=== PATIENT | female | born 1985 | race Caucasian/White ===

== ENCOUNTER 2016-10-25 11:18 | Emergency (ER) | payer MEDICAID ==
[~2016-10-25] VITALS: Ht 165.1 cm; Wt 70.0 kg
[~2016-10-25 11:18] MED LIST: IBUP-232 PO
[2016-10-25 11:22] VITALS: BP 133/63; PULSE 100; RESP 20; TEMP 99.1; O2SAT 98
--- NOTE | 2016-10-25 11:56 | PD ---
Physical Exam Date Seen by Provider: Oct 25, 2016 Time Seen by Provider: 11:53 Narrative Pt states she has strep throat. She is reporting a fever with a max temp of 102 , white patches in her throat, difficulty swallowing. she denies drooling but states she has been spitting because it's painful to swallow. Pt reports her temperature has been normal. She has no other complaints at this time. She was told by her employer she needs a doctors note to return to work. VSS, awaiting bed placement. Data Data Last Documented VS Vital Signs Date Time Temp Pulse Resp B/P Pulse Ox O2 Delivery O2 Flow Rate FiO2 10/25/16 11:22 99.1 100 20 133/63 98 Room Air MDM Supervised Visit with ESTEVAN: Carmen Olivares Oct 25, 2016 11:55
--- NOTE | 2016-10-25 13:54 | PD ---
HPI Chief Complaint: ENT Complaint Time Seen by Provider: 13:52 Travel History International Travel<30 days: No Contact w/Intl Traveler<30days: No Traveled to known affect area: No History of Present Illness HPI Patient is a 31-year-old female presenting to emergency for evaluation of a sore throat. Patient states that ongoing for several days, it hurts to swallow and she has been spitting out saliva due to pain when swallowing. She denies any dysphasia. She denies any shortness breath, nausea, vomiting, abdominal pain, chest pain. Patient reports a dull headache due to the pain. She has no other complaints at this time. She has been taking her son's amoxicillin that she had left over after his prescription was changed to a different antibiotic. She's been taking approximately about the milligrams twice a day for the last 2 days. [facility] Past Medical History Medical History: Denies Significant Hx Diminished Hearing: No ?: Not : 1 Para: 1 Social History Alcohol Use: Yes (OCCASIONALLY) Tobacco Use: No Substance Use: No Allergies-Medications (Allergen,Severity, Reaction): Coded Allergies: No Known Allergies (Verified , 06/18/16) Reported Meds & Prescriptions Reported Meds & Active Scripts Active Ibuprofen 600 Mg Tab 600 Mg PO Q6H PRN Review of Systems Except as stated in HPI: all other systems reviewed are Neg General / Constitutional: Positive: Other (fatigue) HENT: Positive: Headaches, Sore Throat Cardiovascular: No: Chest Pain or Discomfort Respiratory: No: Shortness of Breath Gastrointestinal: No: Nausea, Vomiting, Abdominal Pain Neurologic: No: Weakness, Dizziness, Syncope Physical Exam Narrative GENERAL: Well-nourished, well-developed patient. SKIN: Focused skin assessment warm/dry. HEAD: Normocephalic. EYES: No scleral icterus. No injection or drainage. ENT: Mucosa pink and moist. Moderate erythema, exudates noted on tonsils bilaterally. No uvular edema. No uvular, palatal, or tonsillar deviation. Airway patent. Nasal turbinates appear normal without nasal blood, purulent drainage or septal hematoma. NECK: Supple, trachea midline. No JVD or lymphadenopathy. CARDIOVASCULAR: Regular rate and rhythm without murmurs, gallops, or rubs. RESPIRATORY: Breath sounds equal bilaterally. No accessory muscle use. GASTROINTESTINAL: Abdomen soft, non-tender, nondistended. MUSCULOSKELETAL: No cyanosis, or edema. BACK: Nontender without obvious deformity. No CVA tenderness. Data Data Last Documented VS Vital Signs Date Time Temp Pulse Resp B/P Pulse Ox O2 Delivery O2 Flow Rate FiO2 10/25/16 11:22 99.1 100 20 133/63 98 Room Air Orders Group A Rapid Strep Screen (10/25/16 13:02) Dexamethasone Inj (Decadron Inj) (10/25/16 14:00) Ibuprofen (Motrin) (10/25/16 14:00) Strep Culture (Group A) (10/25/16 13:26) MDM Medical Decision Making Medical Screen Exam Complete: Yes Emergency Medical Condition: Yes Interpretation(s) Vital Signs Date Time Temp Pulse Resp B/P Pulse Ox O2 Delivery O2 Flow Rate FiO2 10/25/16 11:22 99.1 100 20 133/63 98 Room Air Differential Diagnosis Strep pharyngitis versus viral URI versus acute sinusitis versus other Narrative Course Patient is a 31-year-old female presenting to emergency for evaluation of a sore throat. Patient's vital signs are stable, she is well oxygenated, airway is patent. Physical exam revealed bilateral tonsillar hypertrophy with exudates. Strep culture obtained, culture was negative for group A strep. She given ibuprofen and dexamethasone in the emergency department for pain and to help alleviate swelling. Patient will be treated empirically she has only been taking amoxicillin for 2 days, she will be provided with her own prescription. Patient is encouraged to follow-up with her primary care provider return to emergency department for any new or worsening symptoms. Patient verbalized understanding of these instructions. Patient is stable for discharge. Diagnosis Primary Impression: Exudative pharyngitis Referrals: Primary Care Physician 3 days Patient Instructions: General Instructions, Pharyngitis (ED) Departure Forms: Tests/Procedures, Work Release Enter return to work date: Oct 26, 2016 Additional Instructions: Follow-up with your primary doctor Take medications as directed Return to emergency department for any new or worsening symptoms Rest, maintain adequate fluid intake, complete full course of antibiotics as prescribed Take ibuprofen for pain and fevers as directed and as needed Med/Other Pt SpecificInfo: Prescription(s) given Scripts Ibuprofen 800 Mg [id number] Mg PO Q6HR PRN (PAIN) #40 TAB Ref 0 Prov:Carmen Thornton 10/25/16 Amoxicillin-Clavulanate (Augmentin)875-125 mg [id number] Mg PO BID #20 TAB Ref 0 not for use in CrCl <30 ml/min. Prov:Carmen Thornton 10/25/16 Disposition: 01 DISCHARGE HOME Condition: Stable Carmen Thornton Oct 25, 2016 13:54
[2016-10-25] MEDS ORDERED: DEXAMETHASONE SOD PHOS 20 MG/5 ML VIAL IM ONE (14:00)
[2016-10-25] MEDS ORDERED: IBUPROFEN 800 MG TAB PO ONE (14:00)
[2016-10-25] MEDS ORDERED: IBUP800T23 PO (14:38)
[2016-10-25] MEDS ORDERED: AUGM875T PO (14:38)
== END 2016-10-25 15:01 | disposition home or self-care (01) ==
LOC: NETRI 11:18
DX: J02.0 Streptococcal pharyngitis (principal); B95.0 Streptococcus, group A, as the cause of diseases classified elsewhere
CPT/HCPCS: 87081; 87880; 96372; 99284; J1100

== ENCOUNTER 2017-10-18 19:26 | Emergency (ER) | payer MEDICAID ==
[~2017-10-18 19:26] MED LIST changes: +FERRTAB2 PO; -IBUP-232 PO; +PREN1PAK2 PO
[2017-10-18 20:05] VITALS: PULSE 84
[2017-10-18 20:08] VITALS: BP 126/76; PULSE 90
[2017-10-18 20:10] VITALS: PULSE 88
--- NOTE | 2017-10-18 20:33 | PD ---
HPI Chief Complaint ?LOF Date Seen: Oct 18, 2017 Time Seen: 20:29 Travel History International Travel<30 Days: No Contact w/Intl Traveler<30Days: No Known Affected Area: No History of Present Illness HPI Pt is a 32y/o @ 38.0wks. She has PNC with [facility]. She states that for the past week she has been leaking clear fluid. She saw her OBGYN yesterday and was checked and they told her she was not dilated. She was advised if the leaking fluid continued that she should be seen in triage. She came in [facility] for evaluation. She denies VB. +FM. Reports some BH ctx. Weeks Gestation: 38 Para: 1 : 2 History Past Medical History Medical History: Denies Significant Hx Obstetric History Obstetric History 1. 2. current Past Surgical History Surgical History: No Previous Surgery Family History Family History: Negative Social History Alcohol Use: No Tobacco Use: No Substance Abuse: No Allergies-Medications (Allergen,Severity, Reaction): Coded Allergies: No Known Allergies (Verified Adverse Reaction, Unknown, 07/24/17) Home Meds Active Scripts Multi-Vit/Iron-Folic Iosu-B07-Snl C (Ferralet) 90-1-0.012-120 mg Tab, 1 CAPLET PO DAILY for 30 Days, #30 CAPLET 3 Refills Prov:Minerva Shook CNMP 05/22/17 W/O Vit A W/ Fe Carbo Pack (Citranatal Dha Pack) 27-1 & 250 Mg Pack, 1 EA PO DAILY for Nutritional Supplement, #60 BLISTER 11 Refills 30 day supply. Prov:Elaine Price 04/30/17 Review of Systems Except as stated in HPI: all other systems reviewed are Neg Physical Exam Vital Signs Date Time Temp Pulse Resp B/P (MAP) Pulse Ox O2 Delivery O2 Flow Rate FiO2 10/18/17 20:10 88 10/18/17 20:08 90 126/76 (93) 10/18/17 20:05 84 Narrative General: well developed, well nourished, no acute distress HEENT: normocephalic atraumatic, extraocular movements intact, neck supple Abdomen: soft, gravid, nontender, nondistended Uterus: fundus term Extremities: full range of motion Skin: normal coloration, no rashes, no suspicious skin lesions noted Neurologic: cranial nerves 2-12 grossly intact, normal muscle tone, normal gait Psychiatric: normal mood and affect, appropriate FHTs: 140s, +accels, no decels, moderate variability, reactive Lane: irritable Cvx: deferred, amnisure negative Data Data Vital Signs Reviewed: Yes Orders Orders Vital Signs (Adult) .ON ADMISSION (10/18/17 20:07) ^ Labor Status (10/18/17 20:07) Urinalysis - C+S If Indicated (10/18/17 20:07) ^ Non Stress Test (10/18/17 20:07) Pamg-1 Test .ONCE (10/18/17 20:07) Ed Discharge Order (10/18/17 20:29) MDM Plan 32y/o @ 38.0wks with ?LOF. -- amnisure negative -- FHTs cat 1 -- pt counseled not to delay presentation to triage if suspected ROM Dispo: stable for d/c home with precautions Diagnosis Diagnosis: Primary Impression: 38 weeks gestation of Additional Impression: No leakage of amniotic fluid into vagina Ro Antoine MD Oct 18, 2017 20:33
== END 2017-10-18 20:43 | disposition home or self-care (01) ==
LOC: HOBED 19:26
DX: O26.93 Pregnancy related conditions, unspecified, third trimester (principal); Z3A.38 38 weeks gestation of pregnancy
CPT/HCPCS: 59025

== ENCOUNTER 2017-11-03 19:45 | Inpatient (IN) | payer MEDICAID ==
[~2017-11-03] VITALS: Ht 165.1 cm; Wt 90.0 kg
[2017-11-03] MEDS: LACTATED RINGER'S 1000 ML INJ 1,000 ML IV SCH (20:56)
[2017-11-03] MEDS ORDERED: LACTATED RINGER'S 1000 ML INJ 1,000 ML IV PRN (20:56)
[2017-11-03] MEDS ORDERED: SODIUM CHLORID 0.9% 500 ML INJ 500 ML IV PRN (21:00)
[2017-11-03] MEDS ORDERED: MINERAL OIL 10 ML VIAL TOPICAL PRN (21:00)
[2017-11-03] MEDS ORDERED: LIDOCAINE HCL 1% 50 ML VIAL INFIL PRN (21:00)
[2017-11-03] MEDS ORDERED: OXYTOCIN 30 UNITS-500ML PREMIX 500 ML IV ONE (21:00)
[2017-11-03] MEDS ORDERED: LIDOCAINE HCL 1% 50 ML VIAL I-DERMAL PRN (21:00)
[2017-11-03] MEDS ORDERED: CITRIC ACID-SODIUM CITRATE LIQ 30 ML UDC PO SCH (21:00)
--- NOTE | 2017-11-03 21:02 | HHI.HP ---
HPI Chief Complaint Postdates induction for suspected macrosomia Date Seen: Nov 03, 2017 Time Seen: 20:55 Travel History International Travel<30 Days: No Contact w/Intl Traveler<30Days: No Known Affected Area: No History of Present Illness HPI 32-year-old white female @ 40 weeks and 2 days patient of the [facility] who was sent over and schedule by the clinic for induction because she is overdue and she has a history of large babies first baby was 8 lbs. 10 oz. and they are afraid this baby is also 9 pounds so they have called and scheduled for induction. heart tones are reactive and she is having occasional contractions Weeks Gestation: 40 Para: 1 : 2 History Obstetric History Obstetric History 1 vaginal delivery baby 8 lbs. 10 oz. Social History Alcohol Use: No Tobacco Use: No Substance Abuse: No Allergies-Medications (Allergen,Severity, Reaction): Coded Allergies: No Known Allergies (Verified Adverse Reaction, Unknown, 11/03/17) Home Meds Active Scripts Multi-Vit/Iron-Folic Newi-R96-Sbu C (Ferralet) 90-1-0.012-120 mg Tab, 1 CAPLET PO DAILY for 30 Days, #30 CAPLET 3 Refills Prov:Minerva Shook CNMP 05/22/17 W/O Vit A W/ Fe Carbo Pack (Citranatal Dha Pack) 27-1 & 250 Mg Pack, 1 EA PO DAILY for Nutritional Supplement, #60 BLISTER 11 Refills 30 day supply. Prov:Elaine PriceP 04/30/17 Review of Systems General / Constitutional: No: Fever, Weight Gain, Chills, Other Eyes: No: Diploplia, Blurred Vision, Visual changes, Pain, Photophobia HENT: No: Headaches, Vertigo, Lightheadedness Cardiovascular: No: Irregular Rhythm, Chest Pain or Discomfort, Palpitations, Tachycardia, Syncope, Varicosities, Edema, Cyanosis Respiratory: No: Cough, Short of Breath, Other Gastrointestinal: No: Nausea, Vomiting, Diarrhea Genitourinary: No: Decreased Urinary Output, Oliguria Musculoskeletal: No: Limited ROM, Weakness, Cramping, Edema, Pain Skin: No Rash, No Itching, No Dryness, No Lumps, No Change in Pigmentation, No Change in Nails, No Alopecia, No Lesions Neurologic: No: Weakness, Dizziness, Syncope, Focal Abnormalities, Coordination Problem, Headache, Slurred Speech, Seizures Psychiatric: No: Depression, Suicidal Ideations, Homicidal Ideation Endocrine: No: Heat Intolerance, Cold Intolerance, Polydipsia, Polyuria, Other Physical Exam Narrative GENERAL: Well-nourished, well-developed patient. SKIN: Warm and dry. HEAD: Normocephalic and atraumatic. EYES: No scleral icterus. No injection or drainage. ENT: No nasal drainage noted. Mucous membranes pink. Airway patent. NECK: Supple, trachea midline. No JVD. CARDIOVASCULAR: Regular rate and rhythm without murmurs, gallops, or rubs. RESPIRATORY: Breath sounds equal bilaterally. No accessory muscle use. BREASTS: Bilateral exam showed no masses , no retractions, no nipple discharge. ABDOMEN/GI: Abdomen soft, non-tender, bowel sounds present, no rebound, no guarding Gravid to [40-] weeks size Fundal Height: [-40] GENITOURINARY: External Genitalia: intact and normal in appearance BUS glands: [-] Cervix: [-post] Dilatation: [-1] Effacement: [50-] Station: [-3] Presentation: [vtx-] Membranes: [intact ] Uterine Contractions: [irreg-] FHT's: Category: [-1] Baseline: [-133] Reactive: [R-] Variability: [mod-] Decels: [none-] EXTREMITIES: No cyanosis or edema. BACK: Nontender without obvious deformity. No CVA tenderness. NEUROLOGICAL: Awake and alert. Motor and sensory grossly within normal limits. Five out of 5 muscle strength in all muscle groups. Normal speech. Caprini VTE Risk Assessment Caprini VTE Risk Assessment: No/Low Risk (score <= 1) Caprini Risk Assessment Model Point Value = 1 Point Value = 2 Point Value = 3 Point Value = 5 Age 41-60 Minor surgery BMI > 25 kg/m2 Swollen legs Varicose veins or History of unexplained or recurrent spontaneous Oral contraceptives or hormone replacement Sepsis (< 1 month) Serious lung disease, including pneumonia (< 1 month) Abnormal pulmonary function Acute myocardial infarction Congestive heart failure (< 1 month) History of inflammatory bowel disease Medical patient at bed rest Age 61-74 Arthroscopic surgery Major open surgery (> 45 min) Laparoscopic surgery (> 45 min) Malignancy Confined to bed (> 72 hours) Immobilizing plaster cast Central venous access Age >= 75 History of VTE Family history of VTE Factor V Leiden Prothrombin [id number] Lupus anticoagulant Anticardiolipin antibodies Elevated serum homocysteine Heparin-induced thrombocytopenia Other congenital or acquired thrombophilia Stroke (< 1 month) Elective arthroplasty Hip, pelvis, or leg fracture Acute spinal cord injury (< 1 month) Prophylaxis Regimen Total Risk Factor Score Risk Level Prophylaxis Regimen 0-1 Low Early ambulation 2 Moderate Order ONE of the following: *Sequential Compression Device (SCD) *Heparin 5000 units SQ BID 3-4 Higher Order ONE of the following medications: *Heparin 5000 units SQ TID *Enoxaparin/Lovenox 40 mg SQ daily (WT < 150 kg, CrCl > 30 mL/min) *Enoxaparin/Lovenox 30 mg SQ daily (WT < 150 kg, CrCl > 10-29 mL/min) *Enoxaparin/Lovenox 30 mg SQ BID (WT < 150 kg, CrCl > 30 mL/min) AND/OR *Sequential Compression Device (SCD) 5 or more Highest Order ONE of the following medications: *Heparin 5000 units SQ TID (Preferred with Epidurals) *Enoxaparin/Lovenox 40 mg SQ daily (WT < 150 kg, CrCl > 30 mL/min) *Enoxaparin/Lovenox 30 mg SQ daily (WT < 150 kg, CrCl > 10-29 mL/min) *Enoxaparin/Lovenox 30 mg SQ BID (WT < 150 kg, CrCl > 30 mL/min) AND *Sequential Compression Device (SCD) Data Data Orders Orders Admit To Inpatient (11/03/17 ) Vital Signs (Adult) .Per protocol (11/03/17 20:56) Heart (11/03/17 20:56) Amnioinfusion (11/03/17 20:56) Urinary Catheter Management .ONCE (11/03/17 20:56) Diet Liquid (11/04/17 Breakfast) Lactated Ringer's 1000 Ml Inj (Lr 1000 M (11/03/17 20:56) Lactated Ringer's 1000 Ml Inj (Lr 1000 M (11/03/17 20:56) Sodium Chlorid 0.9% 500 Ml Inj (Ns 500 M (11/03/17 21:00) Sodium Chlor 0.9% 1000 Ml Inj (Ns 1000 M (11/03/17 21:16) Lidocaine 1% Inj (50 Ml) (Xylocaine 1% I (11/03/17 21:00) Citric Acid-Sodium Citrate Liq (Bicitra (11/03/17 21:00) Fentanyl Inj (Fentanyl Inj) (11/03/17 21:00) Fentanyl Inj (Fentanyl Inj) (11/03/17 21:00) Complete Blood Count With Diff (11/03/17 20:56) Hold Clot (11/03/17 20:56) Abo/Rh Blood Type (11/03/17 20:56) Urinalysis - C+S If Indicated (11/03/17 20:56) Drug Screen, Random Urine (11/03/17 20:56) Ob/Psych Drug Screen, Urine (11/03/17 20:56) Resp Oxygen Non Rebreathe Mask (11/03/17 ) ^ Epidural / Intrathecal Infus (11/03/17 20:56) Oxytocin 30 Units-500ml Premix (Pitocin (11/03/17 21:00) Lidocaine 1% Inj (50 Ml) (Xylocaine 1% I (11/03/17 21:00) Light Mineral Oil (Muri-Lube Oil) (11/03/17 21:00) Specimen To Be Collected PRN (11/03/17 20:56) Specimen To Be Collected PRN (11/03/17 20:56) ^ Labor Induction (11/03/17 20:57) ^ Vaginal Insert (11/03/17 20:57) ^ Vaginal Lavage (11/03/17 20:57) Heart (11/03/17 20:57) Dinoprostone Vag Insert (Cervidil Vag In (11/03/17 21:00) Group B Strep: Negative Assessment/Plan Assessment and Plan Patient is 32-year-old white female at 40 weeks and 2 days referred for induction for postdates and possible macrosomia, she is having irregular contractions now heart rate tracing is reactive and her cervix is 1/50/-3 Plan-Cervidil cervical ripening the night and Pitocin augmentation in the morning Mich Woo II, MD Nov 03, 2017 21:02
[2017-11-03 21:04] VITALS: RESP 18
[2017-11-03] MEDS ORDERED: DINOPROSTONE 10 MG VAG INSERT VAGINAL ONE (21:15)
[2017-11-03] MEDS ORDERED: SODIUM CHLOR 0.9% 1000 ML INJ 1,000 ML IV PRN (21:16)
[2017-11-03 21:30] VITALS: RESP 18
[2017-11-03 21:55] LABS: AUTOMATED NEUTROPHIL # 8.6 TH/MM3 (1.8-7.7); BASOPHIL # 0.1 TH/MM3 (0-0.2); BASOPHIL % 0.7 % (0.0-2.0); EOSINOPHIL # 0.1 TH/MM3 (0-0.4); EOSINOPHIL % 0.9 % (0.0-4.0); HEMATOCRIT 32.1 % (35.0-46.0); HEMOGLOBIN 10.7 GM/DL (11.6-15.3); LYMPH % 16.9 % (9.0-44.0); LYMPHOCYTE # 1.9 TH/MM3 (1.0-4.8); MEAN CORPUSCULAR HGB CONC 33.3 % (32.0-36.0); MEAN PLATELET VOLUME 9.3 FL (7.0-11.0); MONO % 6.4 % (0.0-8.0); MONOCYTE # 0.7 TH/MM3 (0-0.9); NEUT % 75.1 % (16.0-70.0); PLATELET COUNT 261 TH/MM3 (150-450); RED BLOOD COUNT 3.56 MIL/MM3 (4.00-5.30); RED CELL DISTRIBUTION WIDTH 14.1 % (11.6-17.2); WHITE BLOOD COUNT 11.5 TH/MM3 (4.0-11.0)
[2017-11-03 21:59] LABS: BILIRUBIN, URINE NEG (NEG); BLOOD, URINE NEG (NEG); GLUCOSE,URINE NEG (NEG); KETONE, URINE NEG (NEG); MUCUS URINE FEW /lpf (OCC); NITRITE,URINE NEG (NEG); PH, URINE 6.5 (5.0-8.5); SQUAMOUS EPITHELIAL CELL URINE 1 /hpf (0-5); URINE COLOR LIGHT-YELLOW (YELLW/STRAW); URINE LEUKOCYTE ESTERASE NEG (NEG)
[2017-11-03 22:30] VITALS: RESP 18
[2017-11-03 22:49] VITALS: BP 132/69; PULSE 87
[2017-11-03 22:51] VITALS: RESP 16; TEMP 97.8
[2017-11-04] VITALS (86 sets, daily range): BP systolic 90–137; BP diastolic 47–90; PULSE 68–125; RESP 16–18; TEMP 97.8–98.6
[2017-11-04] MEDS ORDERED: TERBUTALINE INJ 1 MG/ML AMP ONE (08:40)
[2017-11-04] MEDS ORDERED: TERBUTALINE INJ 1 MG/ML AMP SQ ONE (08:45)
--- NOTE | 2017-11-04 08:51 | PD.LABORPN ---
Subjective Subjective Patient feeling some cramping Dr. Woo performed vaginal exam, removed Cervidil, performed AROM of clear fluids, cervix noted to be 3/40/-2 Noted bradycardia after placement Objective Vital Signs Vital Signs Date Time Temp Pulse Resp B/P (MAP) Pulse Ox O2 Delivery O2 Flow Rate FiO2 11/04/17 08:00 17 11/04/17 07:00 18 11/04/17 06:30 16 11/04/17 05:35 97.8 16 11/04/17 05:33 77 121/67 (85) 11/04/17 04:59 18 11/04/17 03:49 18 11/04/17 02:30 16 11/04/17 02:00 16 11/04/17 00:50 16 Objective Pelvic Exam: Cervix: 3/40/-2 Presentation: vertex Membranes: AROM, clear ROM Uterine Contractions: absent after terbutaline FHT's: as noted Weeks Gestation: 40 Artificial ROM date: Nov 04, 2017 Artifical ROM time: 08:35 Assessment/Plan Assessment and Plan Dr. Woo performed exam, AROM, placed IUPC and scalp electrode Prolonged deceleration following placement: bradycardia to mary jo of 50 over 2-3 minutes, with recovery to 90s then HR 120s after 8 minutes Resuscitation efforts as follows: O2, repositioning, Terbulatine 0.25mg x 1, IV fluid bolus Will continue close monitoring for distress Rekha Arthur MD R2 Nov 04, 2017 08:51
[2017-11-04] MEDS: LACTATED RINGER'S 1000 ML INJ 1,000 ML IV SCH ×2 (09:00→12:00)
[2017-11-04] MEDS ORDERED: OXYTOCIN 30 UNITS-500ML PREMIX 500 ML IV PRN (10:30)
[2017-11-04] MEDS ORDERED: ePHEDrine/NS 25 MG/5 ML SYRINGE ONE (12:56)
[2017-11-04] MEDS ORDERED: fentaNYL 2MCG-BUPIV 0.125% INJ 100 ML ONE (12:56)
[2017-11-04] MEDS ORDERED: LABETALOL HCL 100 MG/20 ML VIAL IV PUSH PRN (13:45)
[2017-11-04] MEDS ORDERED: ePHEDrine/NS 25 MG/5 ML SYRINGE IV PUSH PRN (14:30)
[2017-11-04] MEDS ORDERED: DO NOT ADMINISTER ANTICOAGULANTS PRN (14:30)
[2017-11-04] MEDS ORDERED: NO SYSTEM NARCOTICS PRN (14:30)
[2017-11-04] MEDS ORDERED: DIPHTH/TETANUS/ACEL PERTUSSIS (BOOSTER) 0.5 ML VIAL/PFS IM ONE (16:00)
[2017-11-04] MEDS ORDERED: MEASLES, MUMPS, RUBELLA VACCINE 0.5 ML VIAL SQ ONE (16:00)
--- NOTE | 2017-11-04 16:31 | PD.LABORPN ---
Subjective Subjective 32YO at 40/3 now at 6/50/-1, AROM at 08:35AM followed by IUPC placement and scalp probe and removal of Cervidil. Instance of beau cardia has not repeated. FHT BL 130, reactive, moderate and several variable decels. Objective Vital Signs Vital Signs Date Time Temp Pulse Resp B/P (MAP) Pulse Ox O2 Delivery O2 Flow Rate FiO2 11/04/17 16:16 127/79 (95) 11/04/17 16:16 85 11/04/17 16:15 79 11/04/17 16:13 18 11/04/17 16:10 84 11/04/17 16:05 74 11/04/17 16:00 88 117/61 (79) 11/04/17 16:00 72 11/04/17 15:57 17 11/04/17 15:55 74 11/04/17 15:50 74 11/04/17 15:45 76 11/04/17 15:45 18 11/04/17 15:45 68 104/62 (76) 11/04/17 15:25 80 11/04/17 15:20 91 11/04/17 15:15 80 11/04/17 15:15 79 113/70 (84) 11/04/17 15:15 17 11/04/17 15:10 81 11/04/17 15:05 82 11/04/17 15:00 83 11/04/17 15:00 92 119/62 (81) 11/04/17 14:58 18 11/04/17 14:55 89 11/04/17 14:50 105 11/04/17 14:45 87 11/04/17 14:45 94 119/65 (83) 11/04/17 14:43 17 11/04/17 14:40 84 11/04/17 14:35 102 11/04/17 14:30 125 11/04/17 14:30 98 98/67 (77) 11/04/17 14:25 111 11/04/17 14:20 82 11/04/17 14:15 98.3 11/04/17 14:15 86 11/04/17 14:15 90 109/66 (80) 11/04/17 14:15 18 11/04/17 14:10 99 112/71 (85) 11/04/17 14:10 81 11/04/17 14:07 102 107/58 (74) 11/04/17 14:05 90/52 (65) 11/04/17 14:05 104 11/04/17 14:05 102 11/04/17 14:00 17 11/04/17 14:00 89 101/66 (78) 11/04/17 14:00 87 11/04/17 13:55 102 11/04/17 13:55 81 108/64 (79) 11/04/17 13:50 107 110/68 (82) 11/04/17 13:50 83 11/04/17 13:45 113 11/04/17 13:45 89 108/58 (75) 11/04/17 13:45 18 11/04/17 13:40 89 11/04/17 13:40 101 124/75 (91) 11/04/17 13:38 105 102/51 (68) 11/04/17 13:35 101 93/47 (62) 11/04/17 13:35 86 11/04/17 13:30 98 11/04/17 13:30 107 116/71 (86) 11/04/17 13:25 89 11/04/17 13:25 91 130/73 (92) 11/04/17 13:21 103 111/82 (92) 11/04/17 13:00 94 126/73 (90) 11/04/17 13:00 18 11/04/17 12:15 18 11/04/17 12:00 81 101/89 (93) 11/04/17 11:30 18 11/04/17 11:30 94 133/71 (91) 11/04/17 11:00 18 11/04/17 10:59 99 125/76 (92) 11/04/17 10:30 18 11/04/17 09:29 17 11/04/17 08:59 98.6 18 11/04/17 08:50 88 134/73 (93) Objective Pelvic Exam: Cervix: open Dilatation: 6 Effacement: 50 Station: -1 Presentation: vtx Membranes: AROM 08:35AM with IUPC placement and scalp probe Uterine Contractions: regular, q2-3minutes FHT's: Category: 2 Baseline: 130 Reactive: yes Variability: moderate Decels: several variable decels noted Weeks Gestation: 40 Pt started active labor?: Yes Medical induction of labor?: Yes Medical induction start date: Nov 03, 2017 Artificial rupture of membrane: Yes Artificial ROM date: Nov 04, 2017 Artifical ROM time: 08:35 Assessment/Plan Assessment and Plan 32YO at 40/3 now at 6/50/-1, AROM at 08:35AM followed by IUPC placement and scalp probe and removal of Cervidil. Instance of beau cardia has not repeated. FHT BL 130, reactive, moderate and several variable decels. 1. IUP with induction of labor -Reassuring FHTs -Active labor with Pitocin titrated per protocol -Epidural in place -Repositioning, supplemental O2 as required -Monitor and toco w/IUPC and scalp probe in place -Recheck cervix q2h Pt dw Chino Poole MD R1 Nov 04, 2017 16:31
[2017-11-04] MEDS: fentaNYL 2MCG-BUPIV 0.125% 100 ML EPIDURAL SCH ×2 (19:17→20:13)
--- NOTE | 2017-11-04 20:29 | PD.LABORPN ---
Subjective Subjective Patient lying in bed, resting peacefully, no acute complaints. Objective Vital Signs Vital Signs Date Time Temp Pulse Resp B/P (MAP) Pulse Ox O2 Delivery O2 Flow Rate FiO2 11/04/17 20:00 103 117/76 (90) 11/04/17 19:31 94 108/60 (76) 11/04/17 19:08 98.3 16 11/04/17 19:00 90 133/86 (102) 11/04/17 18:45 18 11/04/17 18:45 89 129/77 (94) 11/04/17 18:30 85 112/74 (87) 11/04/17 18:25 18 11/04/17 18:15 82 118/76 (90) 11/04/17 18:00 18 11/04/17 17:45 78 97/72 (80) 11/04/17 17:30 17 11/04/17 17:15 90 112/71 (85) 11/04/17 17:00 87 125/75 (92) 11/04/17 17:00 17 11/04/17 16:45 80 117/80 (92) 11/04/17 16:41 18 11/04/17 16:31 82 118/71 (87) 11/04/17 16:16 127/79 (95) 11/04/17 16:16 85 11/04/17 16:15 98.2 11/04/17 16:15 79 11/04/17 16:13 18 11/04/17 16:10 84 11/04/17 16:05 74 11/04/17 16:00 88 117/61 (79) 11/04/17 16:00 72 11/04/17 15:57 17 11/04/17 15:55 74 11/04/17 15:50 74 11/04/17 15:45 76 11/04/17 15:45 18 11/04/17 15:45 68 104/62 (76) 11/04/17 15:25 80 11/04/17 15:20 91 11/04/17 15:15 80 11/04/17 15:15 79 113/70 (84) 11/04/17 15:15 17 11/04/17 15:10 81 11/04/17 15:05 82 11/04/17 15:00 83 11/04/17 15:00 92 119/62 (81) 11/04/17 14:58 18 11/04/17 14:55 89 11/04/17 14:50 105 11/04/17 14:45 87 11/04/17 14:45 94 119/65 (83) 11/04/17 14:43 17 11/04/17 14:40 84 11/04/17 14:35 102 11/04/17 14:30 125 11/04/17 14:30 98 98/67 (77) 11/04/17 14:25 111 11/04/17 14:20 82 11/04/17 14:15 98.3 11/04/17 14:15 86 11/04/17 14:15 90 109/66 (80) 11/04/17 14:15 18 11/04/17 14:10 99 112/71 (85) 11/04/17 14:10 81 11/04/17 14:07 102 107/58 (74) 11/04/17 14:05 90/52 (65) 11/04/17 14:05 104 11/04/17 14:05 102 11/04/17 14:00 17 11/04/17 14:00 89 101/66 (78) 11/04/17 14:00 87 11/04/17 13:55 102 11/04/17 13:55 81 108/64 (79) 11/04/17 13:50 107 110/68 (82) 11/04/17 13:50 83 11/04/17 13:45 113 11/04/17 13:45 89 108/58 (75) 11/04/17 13:45 18 11/04/17 13:40 89 11/04/17 13:40 101 124/75 (91) 11/04/17 13:38 105 102/51 (68) 11/04/17 13:35 101 93/47 (62) 11/04/17 13:35 86 11/04/17 13:30 98 11/04/17 13:30 107 116/71 (86) 11/04/17 13:25 89 11/04/17 13:25 91 130/73 (92) 11/04/17 13:21 103 111/82 (92) 11/04/17 13:00 94 126/73 (90) 11/04/17 13:00 18 Objective Pelvic Exam: Dilatation: 7 Effacement: 70 Station: -2 Presentation: vertex Membranes: AROM Uterine Contractions: regular 2-3 min FHT's: Category: 2 Baseline: 135 Reactive: yes Variability: moderate Decels: variable Weeks Gestation: 40 Pt started active labor?: Yes Medical induction of labor?: Yes Medical induction start date: Nov 03, 2017 Artificial rupture of membrane: Yes Artificial ROM date: Nov 04, 2017 Artifical ROM time: 08:35 Assessment/Plan Assessment and Plan 1. IUP with induction of labor -Reassuring FHTs -Active labor with Pitocin titrated per protocol -Epidural in place -Repositioning, supplemental O2 as required -Monitor and toco w/IUPC and scalp probe in place -Recheck cervix q2h Efrain Pablo MD R1 Nov 04, 2017 20:29
[2017-11-04] MEDS ORDERED: LIDOCAINE HCL 1% PF 30 ML VIAL ONE (20:47)
--- NOTE | 2017-11-04 21:48 | PD.OB.DELI ---
Weeks gestation: 40 Pt started active labor?: Yes Medical induction of labor?: Yes Medical induction start date: Nov 03, 2017 Artificial rupture of membrane: Yes Artificial ROM date: Nov 04, 2017 Artifical ROM time: 08:35 Anesthesia: Epidural Episiotomy: None Vaginal Delivery: Normal Presentation: Occiput anterior Nuchal Cord: x2 Delayed cord clamping (45 sec): Yes Infant: Female Delivery date: Nov 04, 2017 Delivery time: 21:12 One Minute : 9 Five Minute : 9 Weight: 3585g Placenta: Spontaneous delivery, Intact, 3 vessel cord Laceration: Vaginal laceration, 1 deg (periurethral, left vaginal wall), 2 deg (midline) Repair: Chromic interrupted, Chromic running Estimated blood loss: 100 Additional Information Delivered under the supervision of Efrain Babcock MD R1 Nov 04, 2017 21:48
[2017-11-04] MEDS ORDERED: DOCUSATE SODIUM 50 MG/SENNA 8.6 MG TAB PO PRN (22:00)
[2017-11-04] MEDS ORDERED: OXYTOCIN 30 UNITS-500ML PREMIX 500 ML IV SCH (22:00)
[2017-11-04] MEDS ORDERED: ONDANSETRON ODT 4 MG TAB PO PRN (22:00)
[2017-11-04] MEDS ORDERED: ACETAMINOPHEN 325 MG TAB PO PRN (22:00)
[2017-11-04] MEDS ORDERED: ALUMINUM/MAGNESIUM/SIMETH 30 ML CUP PO PRN (22:00)
[2017-11-04] MEDS ORDERED: WITCH HAZEL 50%/GLYCERIN 12.5% 40 PAD JAR TOPICAL PRN (22:00)
[2017-11-04] MEDS ORDERED: BENZOCAINE 20% TOPICAL SPRAY 60 ML CAN TOPICAL PRN (22:00)
[2017-11-04] MEDS ORDERED: SODIUM CHLORIDE 0.9% FLUSH 10 ML FLUSH IV FLUSH PRN (22:00)
[2017-11-04] MEDS ORDERED: ZOLPIDEM TARTRATE 5 MG TAB PO PRN (22:00)
[2017-11-05 00:05] VITALS: BP 139/78; PULSE 100; RESP 20; TEMP 98.2; O2SAT 98
[2017-11-05] MEDS: IBUPROFEN 800 MG TAB PO PRN ×3 (05:10→21:13)
--- NOTE | 2017-11-05 09:30 | HHI.OB ---
Subjective Post Day: 1 Remarks Ms Caceres had no acute events overnight. Pain controlled, ambulating a little w/ o dizziness, taking PO, voiding twice and some flatus but no BM yet. Attempting to breastfeed. Lochia is same as a period. Deciding on control options. No concerns this morning. Objective Vitals/I&O Vital Signs Date Time Temp Pulse Resp B/P (MAP) Pulse Ox O2 Delivery O2 Flow Rate FiO2 11/05/17 00:05 98.2 100 20 139/78 (98) 98 11/04/17 23:00 107 128/83 (98) 11/04/17 22:45 98 127/82 (97) 11/04/17 22:30 104 137/89 (105) 11/04/17 22:15 98 131/77 (95) 11/04/17 22:02 18 11/04/17 22:01 98.0 86 117/90 (99) 11/04/17 21:48 111 17 128/85 (99) 11/04/17 20:30 84 127/81 (96) 11/04/17 20:00 103 117/76 (90) 11/04/17 19:31 94 108/60 (76) 11/04/17 19:08 98.3 16 11/04/17 19:00 90 133/86 (102) 11/04/17 18:45 18 11/04/17 18:45 89 129/77 (94) 11/04/17 18:30 85 112/74 (87) 11/04/17 18:25 18 11/04/17 18:15 82 118/76 (90) 11/04/17 18:00 18 11/04/17 17:45 78 97/72 (80) 11/04/17 17:30 17 11/04/17 17:15 90 112/71 (85) 11/04/17 17:00 87 125/75 (92) 11/04/17 17:00 17 11/04/17 16:45 80 117/80 (92) 11/04/17 16:41 18 11/04/17 16:31 82 118/71 (87) 11/04/17 16:16 127/79 (95) 11/04/17 16:16 85 11/04/17 16:15 98.2 11/04/17 16:15 79 4/10/18 16:13 18 11/04/17 16:10 84 11/04/17 16:05 74 11/04/17 16:00 88 117/61 (79) 11/04/17 16:00 72 11/04/17 15:57 17 11/04/17 15:55 74 11/04/17 15:50 74 11/04/17 15:45 76 11/04/17 15:45 18 11/04/17 15:45 68 104/62 (76) 11/04/17 15:25 80 11/04/17 15:20 91 11/04/17 15:15 80 11/04/17 15:15 79 113/70 (84) 11/04/17 15:15 17 11/04/17 15:10 81 11/04/17 15:05 82 11/04/17 15:00 83 11/04/17 15:00 92 119/62 (81) 11/04/17 14:58 18 11/04/17 14:55 89 11/04/17 14:50 105 11/04/17 14:45 87 11/04/17 14:45 94 119/65 (83) 11/04/17 14:43 17 11/04/17 14:40 84 11/04/17 14:35 102 11/04/17 14:30 125 11/04/17 14:30 98 98/67 (77) 11/04/17 14:25 111 11/04/17 14:20 82 11/04/17 14:15 98.3 11/04/17 14:15 86 11/04/17 14:15 90 109/66 (80) 11/04/17 14:15 18 11/04/17 14:10 99 112/71 (85) 11/04/17 14:10 81 11/04/17 14:07 102 107/58 (74) 11/04/17 14:05 90/52 (65) 11/04/17 14:05 104 11/04/17 14:05 102 11/04/17 14:00 17 11/04/17 14:00 89 101/66 (78) 11/04/17 14:00 87 11/04/17 13:55 102 11/04/17 13:55 81 108/64 (79) 11/04/17 13:50 107 110/68 (82) 11/04/17 13:50 83 11/04/17 13:45 113 11/04/17 13:45 89 108/58 (75) 11/04/17 13:45 18 11/04/17 13:40 89 11/04/17 13:40 101 124/75 (91) 11/04/17 13:38 105 102/51 (68) 11/04/17 13:35 101 93/47 (62) 11/04/17 13:35 86 11/04/17 13:30 98 11/04/17 13:30 107 116/71 (86) 11/04/17 13:25 89 11/04/17 13:25 91 130/73 (92) 11/04/17 13:21 103 111/82 (92) 11/04/17 13:00 94 126/73 (90) 11/04/17 13:00 18 11/04/17 12:15 18 11/04/17 12:00 81 101/89 (93) 11/04/17 11:30 18 11/04/17 11:30 94 133/71 (91) 11/04/17 11:00 18 11/04/17 10:59 99 125/76 (92) 11/04/17 10:30 18 11/04/17 09:29 17 Objective Remarks GENERAL: Well-nourished, well-developed patient in [facility]. CARDIOVASCULAR: Regular rate and rhythm without murmurs, gallops, or rubs. RESPIRATORY: Breath sounds equal bilaterally. No accessory muscle use. ABDOMEN/GI: Abdomen soft, non-tender. Fundus: Firm, non-tender at umbilicus. GENITOURINARY: Light to moderate bleeding. EXTREMITIES: No cyanosis or edema, non-tender, without signs of DVT. Medications and IVs Current Medications Medications (Trade) Dose Ordered Sig/Aníbal Route Start Time Stop Time Status Last Admin (NS Flush) 2 ml BID IV FLUSH 11/05/17 09:00 (NS Flush) 2 ml UNSCH PRN IV FLUSH 11/04/17 22:00 (Tylenol) 650 mg Q4H PRN PO 11/04/17 22:00 (Motrin) 800 mg Q8H PRN PO 11/04/17 22:00 11/05/17 05:10 (Americaine 20% Top Spr) 1 spray Q4H PRN TOPICAL 11/04/17 22:00 11/04/17 22:47 (Tucks Pads) 1 applic QID PRN TOPICAL 11/04/17 22:00 11/04/17 22:47 (Sofie-Colace) 2 tab Q12H PRN PO 11/04/17 22:00 (Ambien) 5 mg HS PRN PO 11/04/17 22:00 (Mag-Al Plus Susp Liq) 15 ml Q8H PRN PO 11/04/17 22:00 (Zofran Odt) 4 mg Q6H PRN PO 11/04/17 22:00 Assessment/Plan Assessment and Plan 32-year-old white female delivered with induction at 40/3 weeks. Pain controlled, ambulating, taking PO, voiding and flatus, no BM yet. Anticipated . Lochia normal. Physical exam benign. 1. Routine care -Ibuprofen and tylenol PRN -Encourage hydration and OOB ambulating -Encourage -Advised to take only showers, no baths for 2 weeks -Advised pelvic rest for 6 weeks -F/u with OB doctor in 6 weeks -Pt still deciding about control options Anticipate discharge tomorrow Pt dw Felice Burnham and Emmett Arthur Discharge Planning 11/06/17 Chino Dalal MD R1 Nov 05, 2017 09:30
[2017-11-05] MEDS: SODIUM CHLORIDE 0.9% FLUSH 10 ML FLUSH IV FLUSH SCH (20:12)
[2017-11-05 20:15] VITALS: BP 115/65; PULSE 78; RESP 18; TEMP 97.9
[2017-11-06 08:00] VITALS: BP 126/81; PULSE 78; RESP 20; TEMP 97.6
[2017-11-06] MEDS ORDERED: ACET325T15 PO (08:07)
[2017-11-06] MEDS ORDERED: IBUP1TAB7 PO (08:07)
--- NOTE | 2017-11-06 08:08 | HHI.DCPOC ---
Discharge Care Plan Report Symptoms to Your Doctor -Temperature above 100.5 degrees -Redness, of incision or excessive or foul smelling drainage -Unusual pain or calf pain -Increased vaginal bleeding -Painful or difficulty urinating -Feelings of extreme sadness or anxiety after 2 weeks Goals to Promote Your Health * To prevent worsening of your condition and complications, please take medications as prescribed and if needed. * To maintain your health at the optimal level, please follow up with your OB/ [facility] in 6 weeks. Directions to Meet Your Goals Take your medications as prescribed Follow your dietary instruction Follow activity as directed Ensure plenty of rest for recovery Drink fluids for hydration Keep your appointments as scheduled Take your immunizations and boosters as scheduled If your symptoms worsen call your PCP, if no PCP go to Urgent Care Center or Emergency Room Smoking is Dangerous to Your Health. Avoid second hand smoke Call the 24-hour crisis hotline for domestic abuse at Chino Dalal MD R1 Nov 06, 2017 08:08
--- NOTE | 2017-11-06 08:18 | HHI.OB ---
Subjective Post Day: 2 Remarks day # 2. AFVSS overnight. Decreased lochia. Denies dysuria. No breast tenderness. She is feeding the baby via breast. Appetite good. No nausea or vomiting. Ambulating well. Denies calf pain or shortness of breath. Otherwise, she is doing well this morning and has no other concerns. Ready to go home. Objective Vitals/I&O Vital Signs Date Time Temp Pulse Resp B/P (MAP) Pulse Ox O2 Delivery O2 Flow Rate FiO2 11/05/17 20:15 97.9 78 18 115/65 (82) Objective Remarks GENERAL: Well-nourished, well-developed patient in [facility]. CARDIOVASCULAR: Regular rate and rhythm without murmurs, gallops, or rubs. RESPIRATORY: Breath sounds equal bilaterally. No accessory muscle use. ABDOMEN/GI: Abdomen soft, non-tender. Fundus: Firm, non-tender at umbilicus. GENITOURINARY: Light to moderate bleeding. EXTREMITIES: No cyanosis or edema, non-tender, without signs of DVT. Medications and IVs Current Medications Medications (Trade) Dose Ordered Sig/Aníbal Route Start Time Stop Time Status Last Admin (NS Flush) 2 ml BID IV FLUSH 11/05/17 09:00 (NS Flush) 2 ml UNSCH PRN IV FLUSH 11/04/17 22:00 (Tylenol) 650 mg Q4H PRN PO 11/04/17 22:00 (Motrin) 800 mg Q8H PRN PO 11/04/17 22:00 11/05/17 21:13 (Americaine 20% Top Spr) 1 spray Q4H PRN TOPICAL 11/04/17 22:00 11/04/17 22:47 (Tucks Pads) 1 applic QID PRN TOPICAL 11/04/17 22:00 11/04/17 22:47 (Sofie-Colace) 2 tab Q12H PRN PO 11/04/17 22:00 (Ambien) 5 mg HS PRN PO 11/04/17 22:00 (Mag-Al Plus Susp Liq) 15 ml Q8H PRN PO 11/04/17 22:00 (Zofran Odt) 4 mg Q6H PRN PO 11/04/17 22:00 Assessment/Plan Assessment and Plan 32-year-old white female , PPD # 2. Pain controlled, ambulating, taking PO , voiding and flatus, no BM yet. Anticipated . Lochia normal. Physical exam benign. 1. Routine care -Ibuprofen and Tylenol PRN -Encourage hydration and OOB ambulating -Encourage -Advised to take only showers, no baths for 2 weeks -Advised pelvic rest for 6 weeks -F/u with OB doctor in 6 weeks -Pt still deciding about control options, wants to discuss at visit Discharge today. Discharge Planning D/c today Rekha Arthur MD R2 Nov 06, 2017 08:18
[2017-11-06] MEDS: SODIUM CHLORIDE 0.9% FLUSH 10 ML FLUSH IV FLUSH SCH (09:32)
== END 2017-11-06 11:40 | disposition home or self-care (01) | DRG 775 ==
LOC: H2EB 19:45 → H1EA 11-05 00:56
PROVIDERS: ADMIT Obstetrics & Gynecology Maternal & Fetal Medicine; ATTEND Obstetrics & Gynecology Maternal & Fetal Medicine
PROC: 10E0XZZ Delivery of Products of Conception, External Approach (ICD-10-PCS; principal; 2017-11-04)
PROC: 0KQM0ZZ Repair Perineum Muscle, Open Approach (ICD-10-PCS; 2017-11-04)
PROC: 3E0P7VZ Introduction of Hormone into Female Reproductive, Via Natural or Artificial Opening (ICD-10-PCS; 2017-11-04)
PROC: 10907ZC Drainage of Amniotic Fluid, Therapeutic from Products of Conception, Via Natural or Artificial Opening (ICD-10-PCS; 2017-11-04)
PROC: 3E033VJ Introduction of Other Hormone into Peripheral Vein, Percutaneous Approach (ICD-10-PCS; 2017-11-04)
PROC: 00HU33Z Insertion of Infusion Device into Spinal Canal, Percutaneous Approach (ICD-10-PCS; 2017-11-04)
PROC: 3E0R3BZ Introduction of Anesthetic Agent into Spinal Canal, Percutaneous Approach (ICD-10-PCS; 2017-11-04)
DX: O48.0 Post-term pregnancy (principal); O69.81X0 Labor and delivery complicated by cord around neck, without compression, not applicable or unspecified; O76 Abnormality in fetal heart rate and rhythm complicating labor and delivery; O70.1 Second degree perineal laceration during delivery; Z3A.40 40 weeks gestation of pregnancy; Z37.0 Single live birth; Z23 Encounter for immunization
CPT/HCPCS: 59025; 80307; 81001; 85025; 90715; G0481; J2590; J3010; J3105; J7120